=== PATIENT | female | born 1970 | race Caucasian/White ===

== ENCOUNTER → 2019-04-24 | Outpatient (CLI) | payer BC | LOC: MC.RAD 08:52 | DX: Z12.31 Encounter for screening mammogram for malignant neoplasm of breast (principal) ==

== ENCOUNTER → 2020-06-12 | Outpatient (CLI) | payer BC | LOC: MC.RAD | DX: Z12.31 Encounter for screening mammogram for malignant neoplasm of breast (principal); N63.21 Unspecified lump in the left breast, upper outer quadrant; R92.0 Mammographic microcalcification found on diagnostic imaging of breast ==

== ENCOUNTER → 2020-06-19 | Outpatient (CLI) | payer BC | LOC: MC.RAD | DX: N60.02 Solitary cyst of left breast (principal); R92.0 Mammographic microcalcification found on diagnostic imaging of breast; N63.20 Unspecified lump in the left breast, unspecified quadrant ==

== ENCOUNTER → 2021-06-07 | Outpatient (CLI) | payer BC | LOC: MC.RAD 06:55 | DX: D24.2 Benign neoplasm of left breast (principal) ==